=== PATIENT | female | born 1930 | race Caucasian/White ===

== ENCOUNTER 2019-11-14 15:42 | Observation (INO) ==
[2019-11-14] MEDS ORDERED: hydrALAZINE 20 MG/1 ML VIAL IV STA (16:12)
[2019-11-14 16:22] LABS: Basophils # 0.1 10*3/uL (0.0-0.2); Eosinophils # 0.2 10*3/uL (0.0-0.87); Eosinophils % 2.4 % (0.00-10.9); Hemoglobin 13.1 GM/DL (12.0-16.0); Immature Granulocytes % 0.6 %; Immature Granulocytes Absolute 0.05 #; Lymphocytes # 1.2 10*3/uL (1.4-4.0); Lymphocytes % 14.5 % (21.3-54.2); Mean Corpuscular HGB Conc 34.5 GM/DL (32-36); Mean Corpuscular Volume 93.6 FL (87-102); Mean Platelet Volume 9.4 FL (9.6-12.0); Monocytes % 11.4 % (1.7-12.7); Neutrophils % 70.1 % (38.7-73.9); Platelet Count 236 T/CUMM (130-400); Red Blood Count 4.06 MC/CUMM (3.8-5.5); Red Cell Distribution Width 12.8 % (9.3-17.3); White Blood Count 8.3 T/CUMM (4-12)
[2019-11-14 16:58] LABS: Alanine Aminotransferase 50 U/L (13-56); Albumin 3.4 G/DL (3.4-5.0); Alkaline Phosphatase 105 U/L (45-117); Aspartate Amino Transferase 44 U/L (0-37); Blood Urea Nitrogen 18 MG/DL (7-18); Calcium 8.7 MG/DL (8.5-10.1); Estimated Glom Filtration Rate 63 ML/MIN; Glucose 107 MG/DL (74-106); Osmolality,Calculated 250.6 MOS/KG (273-304); Troponin I < 0.015 NG/ML (0.00-0.045)
[2019-11-14] MEDS ORDERED: DOCUSATE SODIUM 100 MG CAPSULE PO PRN (18:27)
[2019-11-14] MEDS ORDERED: ACETAMINOPHEN 325 MG TABLET PO PRN (18:27)
[2019-11-14] MEDS ORDERED: ONDANSETRON 4 MG/2 ML VIAL IV PRN (18:27)
[2019-11-14] MEDS ORDERED: RIVAROXABAN 10 MG TABLET PO ONE (18:29)
[2019-11-14] MEDS ORDERED: ASPIRIN EC 325 MG TABLET PO PRN (18:37)
[2019-11-14] MEDS ORDERED: LORATADINE 10 MG TABLET PO ONE (19:00)
[2019-11-14] MEDS ORDERED: LORATADINE 10 MG TABLET PO PRN (19:01)
[2019-11-14] MEDS ORDERED: hydrALAZINE 20 MG/1 ML VIAL IV PRN (19:02)
[2019-11-14] MEDS: carvediloL 12.5 MG TABLET PO SCH (23:28)
[2019-11-14] MEDS: OXcarbazepine 300 MG TABLET PO SCH (23:30)
[2019-11-14] MEDS: VALSARTAN 160 MG TABLET PO SCH (23:30)
[2019-11-14] MEDS: hydrALAZINE 25 MG TABLET PO SCH (23:33)
[2019-11-14] MEDS: LATANOPROST 0.005% OPH SOLN 2.5 ML BOTTLE BOTH EYES SCH (23:35)
[2019-11-15] MEDS ORDERED: SODIUM CHLORIDE 0.9% 500 ML IV ONE (03:08)
[2019-11-15 05:25] LABS: Basophils # 0.1 10*3/uL (0.0-0.2); Basophils % 0.5 % (0.0-0.8); Eosinophils # 0.1 10*3/uL (0.0-0.87); Eosinophils % 1.1 % (0.00-10.9); Hematocrit 36.4 VOL% (35.7-47.0); Hemoglobin 12.2 GM/DL (12.0-16.0); Immature Granulocytes % 0.8 %; Immature Granulocytes Absolute 0.08 #; Lymphocytes # 0.7 10*3/uL (1.4-4.0); Mean Corpuscular HGB Conc 33.5 GM/DL (32-36); Mean Platelet Volume 9.6 FL (9.6-12.0); Monocytes % 7.1 % (1.7-12.7); Neutrophils % 83.5 % (38.7-73.9); Platelet Count 219 T/CUMM (130-400); Red Blood Count 3.83 MC/CUMM (3.8-5.5); Red Cell Distribution Width 12.9 % (9.3-17.3); White Blood Count 9.6 T/CUMM (4-12)
[2019-11-15 05:48] LABS: Calcium 8.2 MG/DL (8.5-10.1); Osmolality,Calculated 258.2 MOS/KG (273-304); Thyroid Stimulating Hormone 3.08 uIU/ml (0.358-3.74)
[2019-11-15] MEDS: OXcarbazepine 300 MG TABLET PO SCH ×4 (06:38→21:03)
[2019-11-15] MEDS: LEVOTHYROXINE 175 MCG TABLET PO SCH (06:38)
[2019-11-15] MEDS ORDERED: RIVAROXABAN 10 MG TABLET PO SCH (09:00)
[2019-11-15] MEDS: ESTROGENS (CONJ) 0.625 MG TABLET PO SCH (09:29)
[2019-11-15] MEDS: VALSARTAN 160 MG TABLET PO SCH ×2 (09:29→21:04)
[2019-11-15] MEDS: hydrALAZINE 25 MG TABLET PO SCH ×2 (09:31→21:07)
[2019-11-15] MEDS: RIVAROXABAN 20 MG TABLET PO SCH (09:34)
[2019-11-15] MEDS: FUROSEMIDE 20 MG/2 ML VIAL IV SCH ×2 (09:34→16:31)
[2019-11-15] MEDS: carvediloL 12.5 MG TABLET PO SCH ×2 (09:34→21:06)
[2019-11-15] MEDS: FLUTICASONE 50 MCG NASAL SPRAY 16 GM BOTTLE BOTH NARES SCH (09:35)
[2019-11-15] MEDS: LATANOPROST 0.005% OPH SOLN 2.5 ML BOTTLE BOTH EYES SCH (21:10)
[2019-11-16] MEDS: LEVOTHYROXINE 175 MCG TABLET PO SCH (06:45)
[2019-11-16 07:50] VITALS: BP 161/72
[2019-11-16] MEDS: VALSARTAN 160 MG TABLET PO SCH (09:14)
[2019-11-16] MEDS: FUROSEMIDE 20 MG/2 ML VIAL IV SCH (09:14)
[2019-11-16] MEDS: OXcarbazepine 300 MG TABLET PO SCH (09:15)
[2019-11-16] MEDS: ESTROGENS (CONJ) 0.625 MG TABLET PO SCH (09:15)
[2019-11-16] MEDS: hydrALAZINE 25 MG TABLET PO SCH (09:15)
[2019-11-16] MEDS: RIVAROXABAN 20 MG TABLET PO SCH (09:15)
[2019-11-16] MEDS: FLUTICASONE 50 MCG NASAL SPRAY 16 GM BOTTLE BOTH NARES SCH (09:15)
[2019-11-16] MEDS: carvediloL 12.5 MG TABLET PO SCH (09:15)
== END 2019-11-16 11:20 | disposition home or self-care (01) ==
LOC: N.ED 15:42 → N.EDINP 15:42 → N.TELEN 18:25
PROVIDERS: ADMIT Internal Medicine; ATTEND Internal Medicine

== ENCOUNTER 2019-11-26 17:34 | Inpatient (IN) ==
[2019-11-26] MEDS ORDERED: ASPIRIN 325 MG TABLET PO STA (18:12)
[2019-11-26] MEDS ORDERED: hydrALAZINE 20 MG/1 ML VIAL IV STA (18:12)
[2019-11-26] MEDS ORDERED: ONDANSETRON 4 MG/2 ML VIAL IV STA (18:12)
[2019-11-26] MEDS ORDERED: NITROGLYCERIN 2% OINT 1 INCH/GM PACK TOP STA (18:12)
[2019-11-26 18:47] LABS: Basophils % 0.4 % (0.0-0.8); Eosinophils # 0.2 10*3/uL (0.0-0.87); Eosinophils % 2.1 % (0.00-10.9); Hemoglobin 12.3 GM/DL (12.0-16.0); Immature Granulocytes % 0.8 %; Immature Granulocytes Absolute 0.07 #; Lymphocytes # 0.6 10*3/uL (1.4-4.0); Lymphocytes % 6.5 % (21.3-54.2); Mean Corpuscular HGB Conc 35.1 GM/DL (32-36); Mean Corpuscular Volume 92.1 FL (87-102); Mean Platelet Volume 9.1 FL (9.6-12.0); Monocytes % 9.5 % (1.7-12.7); Neutrophils % 80.7 % (38.7-73.9); Platelet Count 215 T/CUMM (130-400); Red Cell Distribution Width 12.8 % (9.3-17.3); White Blood Count 9.1 T/CUMM (4-12)
[2019-11-26 18:59] LABS: PT Patient Result 11.3 SECS (9.6-12.2); Partial Thromboplastin Time 26.6 SECS (20.8-36.0)
[2019-11-26 19:00] LABS: Apearance,Urine CLEAR (Clear); Bilirubin,Urine Negative (Negative); Blood, Urine Negative (Negative); Glucose,Urine (UA) 50 mg/dL (Negative); Ketones,Urine 5 mg/dL (Negative); Mucus,Urine Occasional /LPF (Occasional); Nitrite,Urine Negative (Negative); Protein,Urine 100 MG/DL; RBC,Urine <1 /HPF (0-4); Squamous Epithelial Cell,Urine Occasional /HPF (0-10); Urine Color Yellow (Yellow); Urine Specific Gravity 1.013 (1.001-1.035); Urine Urobilinogen < 2.0 EU/DL (0.2-1.0)
[2019-11-26 19:08] LABS: Alanine Aminotransferase 43 U/L (13-56); Albumin 3.1 G/DL (3.4-5.0); Alkaline Phosphatase 83 U/L (45-117); Aspartate Amino Transferase 31 U/L (0-37); Blood Urea Nitrogen 14 MG/DL (7-18); Calcium 8.2 MG/DL (8.5-10.1); Estimated Glom Filtration Rate 74 ML/MIN; Glucose 115 MG/DL (74-106); Total Protein 6.1 G/DL (6.4-8.3); Troponin I < 0.015 NG/ML (0.00-0.045)
[2019-11-26 19:10] LABS: Barbiturates Screen,Urine Negative (Negative); Benzodiazepines Screen,Urine Negative (Negative); Cannabinoid Screen,Urine Negative (Negative); Opiate Screen,Urine Positive (Negative); Phencyclidine Screen,Urine Negative (Negative)
[2019-11-26] MEDS ORDERED: ORPHENADRINE 60 MG/2 ML VIAL IV STA (19:17)
[2019-11-26] MEDS ORDERED: ASPIRIN EC 325 MG TABLET PO PRN (20:04)
[2019-11-26] MEDS ORDERED: cloNIDine 0.1 MG TABLET PO PRN (20:04)
[2019-11-26] MEDS ORDERED: hydrALAZINE 20 MG/1 ML VIAL IV PRN (20:12)
[2019-11-26] MEDS ORDERED: LORazepam 2 MG/1 ML VIAL IV STA (20:29)
[2019-11-26] MEDS ORDERED: SODIUM CHLORIDE 3% INJ 500 ML IV SCH (21:00)
[2019-11-26] MEDS: carvediloL 12.5 MG TABLET PO SCH (21:06)
[2019-11-26] MEDS: OXcarbazepine 300 MG TABLET PO SCH (21:08)
[2019-11-26] MEDS: ENOXAPARIN 40 MG/0.4 ML SYRINGE SUBCUT SCH (21:08)
[2019-11-26] MEDS: VALSARTAN 160 MG TABLET PO SCH (21:09)
[2019-11-26] MEDS: LATANOPROST 0.005% OPH SOLN 2.5 ML BOTTLE BOTH EYES SCH (22:05)
[2019-11-27 05:25] LABS: Basophils % 0.3 % (0.0-0.8); Eosinophils # 0.1 10*3/uL (0.0-0.87); Eosinophils % 1.4 % (0.00-10.9); Hematocrit 33.7 VOL% (35.7-47.0); Hemoglobin 11.6 GM/DL (12.0-16.0); Immature Granulocytes % 0.5 %; Immature Granulocytes Absolute 0.05 #; Lymphocytes # 0.4 10*3/uL (1.4-4.0); Mean Corpuscular HGB Conc 34.4 GM/DL (32-36); Mean Corpuscular Volume 92.1 FL (87-102); Mean Platelet Volume 9.6 FL (9.6-12.0); Monocytes % 6.9 % (1.7-12.7); Neutrophils % 86.9 % (38.7-73.9); Platelet Count 207 T/CUMM (130-400); Red Blood Count 3.66 MC/CUMM (3.8-5.5); Red Cell Distribution Width 13.1 % (9.3-17.3); White Blood Count 9.3 T/CUMM (4-12)
[2019-11-27 05:52] LABS: Band Neutrophils 1 % (0-10); Eosinophils 1 % (0-10); Hypochromasia Slight; Lymphocytes 2 % (20-55); Ovalocytes Slight; Platelet Estimate Adequate; Segmented Neutrophils 95 % (50-85); Total Cells Counted 100
[2019-11-27] MEDS: ALBUTEROL/IPRATROPIUM 3 ML NEB RESP TX PRN (05:53)
[2019-11-27] MEDS: LEVOTHYROXINE 175 MCG TABLET PO SCH (06:05)
[2019-11-27 06:17] LABS: Osmolality,Calculated 235.6 MOS/KG (273-304); Risk Ratio 2.39; Thyroid Stimulating Hormone 4.46 uIU/ml (0.358-3.74); VLDL CHOLESTEROL 15.4 MG/DL
[2019-11-27] MEDS ORDERED: SODIUM CHLORIDE 0.9% 1,000 ML IV SCH (09:00)
[2019-11-27] MEDS: OXcarbazepine 300 MG TABLET PO SCH ×3 (09:46→21:09)
[2019-11-27] MEDS: carvediloL 12.5 MG TABLET PO SCH ×2 (09:46→21:08)
[2019-11-27] MEDS: ESTROGENS (CONJ) 0.625 MG TABLET PO SCH (09:49)
[2019-11-27] MEDS: PANTOPRAZOLE 40 MG TABLET PO SCH (09:49)
[2019-11-27] MEDS: MULTIVITAMIN (CENTRUM) TABLET PO SCH (09:49)
[2019-11-27] MEDS ORDERED: FUROSEMIDE 40 MG/4 ML VIAL IV ONE (10:20)
[2019-11-27] MEDS ORDERED: FUROSEMIDE 40 MG/4 ML VIAL ONE (10:22)
[2019-11-27] MEDS ORDERED: MAGNESIUM SULF RIDER 2 GM in PREMIX 1 EACH IV PRN (10:24)
[2019-11-27] MEDS ORDERED: MAGNESIUM SULF RIDER 4 GM in PREMIX 1 EACH IV PRN (10:24)
[2019-11-27 11:07] LABS: Apearance,Urine CLEAR (Clear); Bilirubin,Urine Negative (Negative); Blood, Urine Moderate mg/dL (Negative); Glucose,Urine (UA) Negative (Negative); Ketones,Urine Negative (Negative); Mucus,Urine Occasional /LPF (Occasional); Nitrite,Urine Negative (Negative); Protein,Urine Negative; RBC,Urine 23 /HPF (0-4); Urine Color Colorless (Yellow); Urine Specific Gravity 1.004 (1.001-1.035); Urine Urobilinogen < 2.0 EU/DL (0.2-1.0); WBC,Urine <1 /HPF (0-6)
[2019-11-27] MEDS: FUROSEMIDE 40 MG/4 ML VIAL IV SCH (15:02)
[2019-11-27 16:34] LABS: Osmolality,Calculated 248.6 MOS/KG (273-304)
[2019-11-27] MEDS: VALSARTAN 160 MG TABLET PO SCH (21:08)
[2019-11-27] MEDS: ENOXAPARIN 40 MG/0.4 ML SYRINGE SUBCUT SCH (21:09)
[2019-11-27] MEDS: hydrALAZINE 25 MG TABLET PO SCH (21:09)
[2019-11-28] MEDS: LATANOPROST 0.005% OPH SOLN 2.5 ML BOTTLE BOTH EYES SCH ×2 (01:17→20:47)
[2019-11-28 05:53] LABS: Basophils % 0.5 % (0.0-0.8); Eosinophils # 0.1 10*3/uL (0.0-0.87); Eosinophils % 0.7 % (0.00-10.9); Hematocrit 37.1 VOL% (35.7-47.0); Hemoglobin 12.7 GM/DL (12.0-16.0); Immature Granulocytes % 0.7 %; Immature Granulocytes Absolute 0.05 #; Lymphocytes # 0.2 10*3/uL (1.4-4.0); Lymphocytes % 2.9 % (21.3-54.2); Mean Corpuscular HGB Conc 34.2 GM/DL (32-36); Mean Corpuscular Volume 93.9 FL (87-102); Mean Platelet Volume 9.3 FL (9.6-12.0); Neutrophils % 87.2 % (38.7-73.9); Platelet Count 178 T/CUMM (130-400); Red Blood Count 3.95 MC/CUMM (3.8-5.5); Red Cell Distribution Width 13.2 % (9.3-17.3); White Blood Count 7.6 T/CUMM (4-12)
[2019-11-28 06:17] LABS: Calcium 8.3 MG/DL (8.5-10.1); Osmolality,Calculated 249.5 MOS/KG (273-304)
[2019-11-28 06:20] LABS: Lymphocytes 3 % (20-55); Platelet Estimate Adequate; Segmented Neutrophils 91 % (50-85); Total Cells Counted 100
[2019-11-28] MEDS: LEVOTHYROXINE 175 MCG TABLET PO SCH (07:07)
[2019-11-28] MEDS ORDERED: ONDANSETRON 4 MG/2 ML VIAL ONE (09:33)
[2019-11-28] MEDS: hydrALAZINE 25 MG TABLET PO SCH ×2 (09:36→20:46)
[2019-11-28] MEDS: carvediloL 12.5 MG TABLET PO SCH ×2 (09:36→20:46)
[2019-11-28] MEDS: MULTIVITAMIN (CENTRUM) TABLET PO SCH (09:36)
[2019-11-28] MEDS: PANTOPRAZOLE 40 MG TABLET PO SCH (09:36)
[2019-11-28] MEDS: FUROSEMIDE 40 MG/4 ML VIAL IV SCH ×2 (09:37→15:36)
[2019-11-28] MEDS: ESTROGENS (CONJ) 0.625 MG TABLET PO SCH (09:37)
[2019-11-28] MEDS: OXcarbazepine 300 MG TABLET PO SCH ×3 (09:37→20:46)
[2019-11-28] MEDS: ONDANSETRON 4 MG/2 ML VIAL IV PRN (09:38)
[2019-11-28] MEDS: POLYETHYLENE GLYCOL POWDER 17 GM PACK PO SCH (12:49)
[2019-11-28] MEDS ORDERED: ACETAMINOPHEN 325 MG TABLET ONE (15:29)
[2019-11-28] MEDS: ACETAMINOPHEN 325 MG TABLET PO PRN (15:34)
[2019-11-28] MEDS: ALBUTEROL/IPRATROPIUM 3 ML NEB RESP TX PRN (16:21)
[2019-11-28] MEDS: SODIUM CHLORIDE 0.9% 1,000 ML IV SCH (17:40)
[2019-11-28 18:46] LABS: Apearance,Urine CLEAR (Clear); Bilirubin,Urine Negative (Negative); Blood, Urine Negative (Negative); Glucose,Urine (UA) Negative (Negative); Hyaline Casts,Urine 1 /LPF (0-3); Ketones,Urine Negative (Negative); Mucus,Urine Occasional /LPF (Occasional); Nitrite,Urine Negative (Negative); Protein,Urine Negative; RBC,Urine 3 /HPF (0-4); Squamous Epithelial Cell,Urine Occasional /HPF (0-10); Urine Color Yellow (Yellow); Urine Specific Gravity 1.006 (1.001-1.035); Urine Urobilinogen < 2.0 EU/DL (0.2-1.0)
[2019-11-28] MEDS: VALSARTAN 160 MG TABLET PO SCH (20:46)
[2019-11-28] MEDS: ENOXAPARIN 40 MG/0.4 ML SYRINGE SUBCUT SCH (20:47)
[2019-11-29] MEDS: ACETAMINOPHEN 325 MG TABLET PO PRN (01:20)
[2019-11-29 05:39] LABS: Albumin 2.6 G/DL (3.4-5.0); Calcium 7.4 MG/DL (8.5-10.1); Osmolality,Calculated 253.4 MOS/KG (273-304)
[2019-11-29] MEDS: LEVOTHYROXINE 175 MCG TABLET PO SCH (06:54)
[2019-11-29] MEDS: SODIUM CHLORIDE 0.9% 1,000 ML IV SCH ×2 (07:18→14:41)
[2019-11-29] MEDS: ALBUTEROL/IPRATROPIUM 3 ML NEB RESP TX PRN ×2 (07:50→22:52)
[2019-11-29] MEDS: ONDANSETRON 4 MG/2 ML VIAL IV PRN (08:58)
[2019-11-29] MEDS: PANTOPRAZOLE 40 MG TABLET PO SCH (09:01)
[2019-11-29] MEDS: MULTIVITAMIN (CENTRUM) TABLET PO SCH (09:01)
[2019-11-29] MEDS: hydrALAZINE 25 MG TABLET PO SCH ×2 (09:01→22:38)
[2019-11-29] MEDS: carvediloL 12.5 MG TABLET PO SCH ×2 (09:01→22:25)
[2019-11-29] MEDS: POLYETHYLENE GLYCOL POWDER 17 GM PACK PO SCH (09:01)
[2019-11-29] MEDS: ESTROGENS (CONJ) 0.625 MG TABLET PO SCH (09:01)
[2019-11-29] MEDS: OXcarbazepine 300 MG TABLET PO SCH ×2 (09:02→22:26)
[2019-11-29] MEDS ORDERED: POTASSIUM CHLORIDE 20 MEQ TABLET PO ONE (09:31)
[2019-11-29] MEDS: ENOXAPARIN 40 MG/0.4 ML SYRINGE SUBCUT SCH (22:26)
[2019-11-29] MEDS: VALSARTAN 160 MG TABLET PO SCH (22:26)
[2019-11-29] MEDS: LATANOPROST 0.005% OPH SOLN 2.5 ML BOTTLE BOTH EYES SCH (22:39)
[2019-11-30] MEDS: SODIUM CHLORIDE 0.9% 1,000 ML IV SCH (03:51)
[2019-11-30] MEDS: LEVOTHYROXINE 175 MCG TABLET PO SCH (06:02)
[2019-11-30 06:21] LABS: Calcium 7.9 MG/DL (8.5-10.1); Osmolality,Calculated 249.8 MOS/KG (273-304)
[2019-11-30] MEDS: OXcarbazepine 300 MG TABLET PO SCH ×2 (08:20→21:56)
[2019-11-30] MEDS: MULTIVITAMIN (CENTRUM) TABLET PO SCH (08:20)
[2019-11-30] MEDS: carvediloL 12.5 MG TABLET PO SCH ×2 (08:20→21:56)
[2019-11-30] MEDS: hydrALAZINE 25 MG TABLET PO SCH ×2 (08:20→21:56)
[2019-11-30] MEDS: POLYETHYLENE GLYCOL POWDER 17 GM PACK PO SCH (08:20)
[2019-11-30] MEDS: PANTOPRAZOLE 40 MG TABLET PO SCH (08:20)
[2019-11-30] MEDS: ESTROGENS (CONJ) 0.625 MG TABLET PO SCH (08:20)
[2019-11-30] MEDS ORDERED: IPRATROPIUM 500 MCG/2.5 ML NEB RESP TX PRN (08:36)
[2019-11-30] MEDS: guaiFENesin 200 MG/10 ML UDCUP PO PRN (15:20)
[2019-11-30] MEDS: ACETAMINOPHEN 325 MG TABLET PO PRN (15:20)
[2019-11-30] MEDS: ALBUTEROL/IPRATROPIUM 3 ML NEB RESP TX PRN (20:46)
[2019-11-30] MEDS: ENOXAPARIN 40 MG/0.4 ML SYRINGE SUBCUT SCH (21:56)
[2019-11-30] MEDS: LATANOPROST 0.005% OPH SOLN 2.5 ML BOTTLE BOTH EYES SCH (21:58)
[2019-11-30] MEDS: VALSARTAN 160 MG TABLET PO SCH (23:01)
[2019-12-01] MEDS: SODIUM CHLORIDE 0.9% 1,000 ML IV SCH ×2 (04:00→10:02)
[2019-12-01 05:44] LABS: Osmolality,Calculated 254.6 MOS/KG (273-304)
[2019-12-01] MEDS: LEVOTHYROXINE 175 MCG TABLET PO SCH (06:36)
[2019-12-01] MEDS: ESTROGENS (CONJ) 0.625 MG TABLET PO SCH (08:10)
[2019-12-01] MEDS: MULTIVITAMIN (CENTRUM) TABLET PO SCH (08:10)
[2019-12-01] MEDS: PANTOPRAZOLE 40 MG TABLET PO SCH (08:10)
[2019-12-01] MEDS: hydrALAZINE 25 MG TABLET PO SCH ×2 (08:10→20:34)
[2019-12-01] MEDS: carvediloL 12.5 MG TABLET PO SCH ×2 (08:10→20:33)
[2019-12-01] MEDS: POLYETHYLENE GLYCOL POWDER 17 GM PACK PO SCH (08:11)
[2019-12-01] MEDS: OXcarbazepine 300 MG TABLET PO SCH ×2 (08:13→20:32)
[2019-12-01] MEDS: ALBUTEROL/IPRATROPIUM 3 ML NEB RESP TX PRN ×2 (10:18→15:40)
[2019-12-01] MEDS: guaiFENesin 200 MG/10 ML UDCUP PO PRN ×2 (10:27→15:36)
[2019-12-01] MEDS: ACETAMINOPHEN 325 MG TABLET PO PRN ×2 (11:57→15:36)
[2019-12-01] MEDS: ONDANSETRON 4 MG/2 ML VIAL IV PRN (15:36)
[2019-12-01] MEDS: ENOXAPARIN 40 MG/0.4 ML SYRINGE SUBCUT SCH (20:33)
[2019-12-01] MEDS: VALSARTAN 160 MG TABLET PO SCH (20:34)
[2019-12-01] MEDS: LATANOPROST 0.005% OPH SOLN 2.5 ML BOTTLE BOTH EYES SCH (20:43)
[2019-12-02] MEDS: guaiFENesin 200 MG/10 ML UDCUP PO PRN ×2 (00:56→08:07)
[2019-12-02] MEDS: SODIUM CHLORIDE 0.9% 1,000 ML IV SCH (03:51)
[2019-12-02 05:39] LABS: Basophils % 0.3 % (0.0-0.8); Eosinophils # 0.2 10*3/uL (0.0-0.87); Eosinophils % 2.9 % (0.00-10.9); Hematocrit 31.4 VOL% (35.7-47.0); Hemoglobin 10.6 GM/DL (12.0-16.0); Immature Granulocytes % 0.8 %; Immature Granulocytes Absolute 0.05 #; Lymphocytes # 0.4 10*3/uL (1.4-4.0); Lymphocytes % 6.6 % (21.3-54.2); Mean Corpuscular HGB Conc 33.8 GM/DL (32-36); Mean Corpuscular Volume 94.3 FL (87-102); Mean Platelet Volume 10.6 FL (9.6-12.0); Monocytes % 7.8 % (1.7-12.7); Neutrophils % 81.6 % (38.7-73.9); Platelet Count 129 T/CUMM (130-400); Red Blood Count 3.33 MC/CUMM (3.8-5.5); Red Cell Distribution Width 13.7 % (9.3-17.3); White Blood Count 6.7 T/CUMM (4-12)
[2019-12-02 06:04] LABS: Calcium 7.9 MG/DL (8.5-10.1); Free T4 (Free Thyroxine) 1.22 NG/DL (0.76-1.46); Osmolality,Calculated 257.5 MOS/KG (273-304)
[2019-12-02] MEDS: LEVOTHYROXINE 175 MCG TABLET PO SCH (06:06)
[2019-12-02] MEDS: hydrALAZINE 25 MG TABLET PO SCH ×2 (08:05→20:41)
[2019-12-02] MEDS: OXcarbazepine 300 MG TABLET PO SCH ×2 (08:05→20:58)
[2019-12-02] MEDS: carvediloL 12.5 MG TABLET PO SCH ×2 (08:06→21:12)
[2019-12-02] MEDS: MULTIVITAMIN (CENTRUM) TABLET PO SCH (08:07)
[2019-12-02] MEDS: POLYETHYLENE GLYCOL POWDER 17 GM PACK PO SCH (08:07)
[2019-12-02] MEDS: ESTROGENS (CONJ) 0.625 MG TABLET PO SCH (08:08)
[2019-12-02] MEDS: PANTOPRAZOLE 40 MG TABLET PO SCH (08:08)
[2019-12-02] MEDS: ALBUTEROL/IPRATROPIUM 3 ML NEB RESP TX SCH ×3 (12:55→19:38)
[2019-12-02] MEDS ORDERED: RACEPINEPHRINE 0.5 ML NEB RESP TX ONE (12:58)
[2019-12-02] MEDS: ACETAMINOPHEN 325 MG TABLET PO PRN ×2 (16:00→20:57)
[2019-12-02] MEDS: ONDANSETRON 4 MG/2 ML VIAL IV PRN (17:28)
[2019-12-02] MEDS: VALSARTAN 80 MG TABLET PO SCH ×2 (20:43→21:13)
[2019-12-02] MEDS: ENOXAPARIN 40 MG/0.4 ML SYRINGE SUBCUT SCH (20:58)
[2019-12-02] MEDS: LATANOPROST 0.005% OPH SOLN 2.5 ML BOTTLE BOTH EYES SCH (21:11)
[2019-12-03] MEDS: ALBUTEROL/IPRATROPIUM 3 ML NEB RESP TX SCH ×7 (01:12→23:58)
[2019-12-03] MEDS: ACETAMINOPHEN 325 MG TABLET PO PRN ×2 (03:45→11:45)
[2019-12-03] MEDS: SODIUM CHLORIDE 0.9% 1,000 ML IV SCH (04:16)
[2019-12-03 05:11] LABS: Basophils % 0.3 % (0.0-0.8); Eosinophils # 0.2 10*3/uL (0.0-0.87); Eosinophils % 2.5 % (0.00-10.9); Hematocrit 33.5 VOL% (35.7-47.0); Hemoglobin 11.3 GM/DL (12.0-16.0); Immature Granulocytes % 0.9 %; Immature Granulocytes Absolute 0.07 #; Lymphocytes # 0.5 10*3/uL (1.4-4.0); Lymphocytes % 6.4 % (21.3-54.2); Mean Corpuscular HGB Conc 33.7 GM/DL (32-36); Mean Corpuscular Volume 95.2 FL (87-102); Mean Platelet Volume 10.4 FL (9.6-12.0); Monocytes % 9.1 % (1.7-12.7); Neutrophils % 80.8 % (38.7-73.9); Platelet Count 145 T/CUMM (130-400); Red Blood Count 3.52 MC/CUMM (3.8-5.5); Red Cell Distribution Width 13.7 % (9.3-17.3); White Blood Count 7.9 T/CUMM (4-12)
[2019-12-03 05:25] LABS: Calcium 8.2 MG/DL (8.5-10.1); Osmolality,Calculated 256.6 MOS/KG (273-304)
[2019-12-03] MEDS: LEVOTHYROXINE 175 MCG TABLET PO SCH (05:49)
[2019-12-03] MEDS: hydrALAZINE 25 MG TABLET PO SCH ×2 (09:02→21:30)
[2019-12-03] MEDS: carvediloL 12.5 MG TABLET PO SCH ×2 (09:03→21:30)
[2019-12-03] MEDS: POLYETHYLENE GLYCOL POWDER 17 GM PACK PO SCH (09:03)
[2019-12-03] MEDS: OXcarbazepine 300 MG TABLET PO SCH (09:03)
[2019-12-03] MEDS: MULTIVITAMIN (CENTRUM) TABLET PO SCH (09:03)
[2019-12-03] MEDS: ESTROGENS (CONJ) 0.625 MG TABLET PO SCH (09:04)
[2019-12-03] MEDS: PANTOPRAZOLE 40 MG TABLET PO SCH (09:04)
[2019-12-03] MEDS: guaiFENesin 200 MG/10 ML UDCUP PO PRN (11:51)
[2019-12-03] MEDS: LATANOPROST 0.005% OPH SOLN 2.5 ML BOTTLE BOTH EYES SCH (21:29)
[2019-12-03] MEDS: ENOXAPARIN 40 MG/0.4 ML SYRINGE SUBCUT SCH (21:29)
[2019-12-03] MEDS: VALSARTAN 80 MG TABLET PO SCH (21:30)
[2019-12-04] MEDS: SODIUM CHLORIDE 0.9% 1,000 ML IV SCH (03:35)
[2019-12-04] MEDS: ALBUTEROL/IPRATROPIUM 3 ML NEB RESP TX SCH ×3 (04:13→10:56)
[2019-12-04 04:59] LABS: Basophils % 0.3 % (0.0-0.8); Eosinophils # 0.3 10*3/uL (0.0-0.87); Eosinophils % 3.4 % (0.00-10.9); Hematocrit 33.6 VOL% (35.7-47.0); Hemoglobin 11.1 GM/DL (12.0-16.0); Immature Granulocytes % 0.9 %; Immature Granulocytes Absolute 0.07 #; Lymphocytes # 0.4 10*3/uL (1.4-4.0); Lymphocytes % 5.3 % (21.3-54.2); Mean Corpuscular Volume 94.9 FL (87-102); Mean Platelet Volume 10.6 FL (9.6-12.0); Monocytes % 7.3 % (1.7-12.7); Neutrophils % 82.8 % (38.7-73.9); Platelet Count 175 T/CUMM (130-400); Red Blood Count 3.54 MC/CUMM (3.8-5.5); Red Cell Distribution Width 13.6 % (9.3-17.3); White Blood Count 7.6 T/CUMM (4-12)
[2019-12-04] MEDS: LEVOTHYROXINE 175 MCG TABLET PO SCH (05:38)
[2019-12-04 05:41] LABS: Calcium 8.3 MG/DL (8.5-10.1); Osmolality,Calculated 261.1 MOS/KG (273-304)
[2019-12-04] MEDS: MULTIVITAMIN (CENTRUM) TABLET PO SCH ×2 (08:54→09:01)
[2019-12-04] MEDS: POLYETHYLENE GLYCOL POWDER 17 GM PACK PO SCH ×2 (08:54→09:01)
[2019-12-04] MEDS: ESTROGENS (CONJ) 0.625 MG TABLET PO SCH ×2 (08:55→09:01)
[2019-12-04] MEDS: carvediloL 12.5 MG TABLET PO SCH (08:55)
[2019-12-04] MEDS: PANTOPRAZOLE 40 MG TABLET PO SCH (08:55)
[2019-12-04] MEDS: hydrALAZINE 25 MG TABLET PO SCH (08:55)
[2019-12-04] MEDS ORDERED: OXcarbazepine 300 MG TABLET PO SCH (09:00)
[2019-12-04 10:47] LABS: Apearance,Urine CLEAR (Clear); Bilirubin,Urine Negative (Negative); Blood, Urine Negative (Negative); Glucose,Urine (UA) Negative (Negative); Ketones,Urine Negative (Negative); Nitrite,Urine Negative (Negative); Protein,Urine Negative; RBC,Urine <1 /HPF (0-4); Squamous Epithelial Cell,Urine Few /HPF (0-10); Urine Color Yellow (Yellow); Urine Specific Gravity 1.008 (1.001-1.035); WBC,Urine <1 /HPF (0-6)
[2019-12-04] MEDS: ACETAMINOPHEN 325 MG TABLET PO PRN (14:01)
[2019-12-04 15:25] VITALS: BP 113/63
[2019-12-04] MEDS ORDERED: SODIUM CHLORIDE/POTASSIUM CHLORIDE TABLET PO SCH (21:00)
== END 2019-12-04 16:06 | DRG 640 ==
LOC: N.ED 17:34 → N.EDINP 20:06 → SUATTDRO 20:06 → N.CC 20:34 → N.5E 11-27 14:16
PROVIDERS: ADMIT Internal Medicine Geriatric Medicine; ATTEND Family Medicine

== ENCOUNTER 2021-03-12 17:39 | Inpatient (IN) ==
[2021-03-12] MEDS ORDERED: ALBUTEROL 2.5 MG/3 ML NEB RESP TX STA (18:01)
[2021-03-12] MEDS ORDERED: SODIUM CHLORIDE 0.9% 250 ML IV STA (18:03)
[2021-03-12 18:16] LABS: Basophils % 0.6 % (0.0-0.8); Eosinophils # 0.1 10*3/uL (0.0-0.87); Eosinophils % 1.4 % (0.00-10.9); Hematocrit 31.3 VOL% (35.7-47.0); Hemoglobin 9.6 GM/DL (12.0-16.0); Immature Granulocytes % 0.9 %; Immature Granulocytes Absolute 0.06 #; Lymphocytes # 0.6 10*3/uL (1.4-4.0); Lymphocytes % 8.6 % (21.3-54.2); Mean Corpuscular HGB Conc 30.7 GM/DL (32-36); Mean Corpuscular Volume 89.4 FL (87-102); Mean Platelet Volume 9.7 FL (9.6-12.0); Monocytes % 10.8 % (1.7-12.7); Neutrophils % 77.7 % (38.7-73.9); Platelet Count 280 T/CUMM (130-400); Red Cell Distribution Width 15.3 % (9.3-17.3); White Blood Count 6.5 T/CUMM (4-12)
[2021-03-12 18:30] LABS: Bacteria,Urine Occasional /HPF (Few); Bilirubin,Urine Negative (Negative); Blood, Urine Negative (Negative); Glucose,Urine (UA) Negative (Negative); Ketones,Urine Negative (Negative); Mucus,Urine Occasional /LPF (Occasional); Nitrite,Urine Negative (Negative); Protein,Urine 100 MG/DL; RBC,Urine 5 /HPF (0-4); Squamous Epithelial Cell,Urine Occasional /HPF (0-10); Urine Appearance CLOUDY (Clear); Urine Color Yellow (Yellow); Urine Specific Gravity 1.019 (1.001-1.035); Urine Urobilinogen < 2.0 EU/DL (0.2-1.0)
[2021-03-12 18:38] LABS: Alanine Aminotransferase 27 U/L (13-56); Albumin 3.4 G/DL (3.4-5.0); Alkaline Phosphatase 111 U/L (45-117); Aspartate Amino Transferase 29 U/L (0-37); Blood Urea Nitrogen 22 MG/DL (7-18); Calcium 8.6 MG/DL (8.5-10.1); Carbon Dioxide 25 MMOL/L (21-32); Estimated Glom Filtration Rate 56 ML/MIN; Glucose 117 MG/DL (74-106); Osmolality,Calculated 261.9 MOS/KG (273-304); Potassium 4.7 MMOL/L (3.5-5.1); Sodium 129 MMOL/L (136-145); Total Protein 6.7 G/DL (6.4-8.2)
[2021-03-12] MEDS ORDERED: FUROSEMIDE 20 MG/2 ML VIAL IV STA (18:55)
[2021-03-12] MEDS ORDERED: FUROSEMIDE 40 MG/4 ML VIAL ONE (19:08)
[2021-03-12] MEDS ORDERED: ONDANSETRON 4 MG/2 ML VIAL IV PRN (19:39)
[2021-03-12] MEDS ORDERED: GLUCAGON 1 MG VIAL IM PRN (19:39)
[2021-03-12] MEDS ORDERED: ZALEPLON 5 MG CAPSULE PO PRN (19:39)
[2021-03-12] MEDS ORDERED: DEXTROSE 50% 25 GM/50 ML VIAL IV PRN (19:39)
[2021-03-12] MEDS ORDERED: ACETAMINOPHEN 325 MG TABLET PO PRN (19:39)
[2021-03-12] MEDS ORDERED: cloNIDine 0.1 MG TABLET PO PRN (20:06)
[2021-03-13] MEDS: ALBUTEROL/IPRATROPIUM 3 ML NEB RESP TX SCH ×4 (00:47→20:13)
[2021-03-13] MEDS: FUROSEMIDE 40 MG/4 ML VIAL IV SCH ×4 (01:55→20:31)
[2021-03-13 05:07] LABS: Basophils # 0.1 10*3/uL (0.0-0.2); Basophils % 0.7 % (0.0-0.8); Eosinophils # 0.2 10*3/uL (0.0-0.87); Eosinophils % 2.8 % (0.00-10.9); Hemoglobin 9.4 GM/DL (12.0-16.0); Immature Granulocytes % 0.8 %; Immature Granulocytes Absolute 0.06 #; Lymphocytes # 0.9 10*3/uL (1.4-4.0); Lymphocytes % 12.8 % (21.3-54.2); Mean Corpuscular HGB Conc 30.3 GM/DL (32-36); Mean Corpuscular Volume 90.6 FL (87-102); Monocytes % 15.9 % (1.7-12.7); Platelet Count 266 T/CUMM (130-400); Red Blood Count 3.42 MC/CUMM (3.8-5.5); Red Cell Distribution Width 15.1 % (9.3-17.3); White Blood Count 7.2 T/CUMM (4-12)
[2021-03-13 05:38] LABS: Atypical Lymphocytes Few; Band Neutrophils 2 % (0-10); Eosinophils 1 % (0-10); Hypochromasia 1+; Lymphocytes 17 % (20-55); Segmented Neutrophils 68 % (50-85); Total Cells Counted 100
[2021-03-13 05:39] LABS: Microcytosis 1+; Tear Drop Cells Few
[2021-03-13 05:40] LABS: Elliptocytes 1+; Platelet Estimate Normal; Polychromasia Slight
[2021-03-13 05:58] LABS: Calcium 8.7 MG/DL (8.5-10.1); Osmolality,Calculated 262.8 MOS/KG (273-304); Potassium 4.2 MMOL/L (3.5-5.1)
[2021-03-13] MEDS ORDERED: ASPIRIN EC 81 MG TABLET PO PRN (07:45)
[2021-03-13] MEDS: PANTOPRAZOLE 40 MG TABLET PO SCH (08:26)
[2021-03-13] MEDS: hydrALAZINE 25 MG TABLET PO SCH ×3 (08:26→20:33)
[2021-03-13] MEDS: carvediloL 6.25 MG TABLET PO SCH ×2 (08:26→16:01)
[2021-03-13] MEDS ORDERED: POTASSIUM CHLORIDE 20 MEQ TABLET PO ONE (15:33)
[2021-03-13] MEDS: APIXABAN 5 MG TABLET PO SCH (20:32)
[2021-03-13] MEDS: OXcarbazepine 300 MG TABLET PO SCH (20:33)
[2021-03-13] MEDS: TAFLUPROST 0.0015% BOTH EYES SCH (22:09)
[2021-03-14] MEDS: ALBUTEROL/IPRATROPIUM 3 ML NEB RESP TX SCH ×4 (02:19→19:51)
[2021-03-14 04:17] LABS: Risk Ratio 2.73; VLDL CHOLESTEROL 13.6 MG/DL
[2021-03-14 04:46] LABS: Bacteria,Urine Occasional /HPF (Few); Bilirubin,Urine Negative (Negative); Blood, Urine Negative (Negative); Glucose,Urine (UA) Negative (Negative); Hyaline Casts,Urine 1 /LPF (0-3); Ketones,Urine Negative (Negative); Mucus,Urine Occasional /LPF (Occasional); Nitrite,Urine Negative (Negative); Protein,Urine Negative; RBC,Urine 3 /HPF (0-4); Urine Appearance CLEAR (Clear); Urine Color Yellow (Yellow); Urine Specific Gravity 1.008 (1.001-1.035); Urine Urobilinogen < 2.0 EU/DL (0.2-1.0)
[2021-03-14] MEDS: LEVOTHYROXINE 200 MCG TABLET PO SCH (06:49)
[2021-03-14] MEDS: PANTOPRAZOLE 40 MG TABLET PO SCH (08:36)
[2021-03-14] MEDS: hydrALAZINE 25 MG TABLET PO SCH ×3 (08:36→20:36)
[2021-03-14] MEDS: OXcarbazepine 300 MG TABLET PO SCH ×2 (08:36→20:35)
[2021-03-14] MEDS: carvediloL 6.25 MG TABLET PO SCH ×2 (08:36→16:38)
[2021-03-14] MEDS: APIXABAN 5 MG TABLET PO SCH ×2 (08:36→20:36)
[2021-03-14] MEDS: FUROSEMIDE 40 MG/4 ML VIAL IV SCH ×2 (08:37→20:36)
[2021-03-14] MEDS ORDERED: ROSUVASTATIN 20 MG TABLET PO SCH (09:00)
[2021-03-14] MEDS: TAFLUPROST 0.0015% BOTH EYES SCH (22:12)
[2021-03-15] MEDS: ALBUTEROL/IPRATROPIUM 3 ML NEB RESP TX SCH ×2 (01:23→10:30)
[2021-03-15] MEDS: LEVOTHYROXINE 200 MCG TABLET PO SCH (06:53)
[2021-03-15 07:00] LABS: Basophils # 0.1 10*3/uL (0.0-0.2); Basophils % 0.7 % (0.0-0.8); Eosinophils # 0.3 10*3/uL (0.0-0.87); Eosinophils % 4.2 % (0.00-10.9); Hematocrit 28.4 VOL% (35.7-47.0); Hemoglobin 8.6 GM/DL (12.0-16.0); Immature Granulocytes % 0.8 %; Immature Granulocytes Absolute 0.06 #; Lymphocytes # 0.7 10*3/uL (1.4-4.0); Mean Corpuscular HGB Conc 30.3 GM/DL (32-36); Mean Corpuscular Volume 90.4 FL (87-102); Mean Platelet Volume 9.1 FL (9.6-12.0); Monocytes % 14.5 % (1.7-12.7); Neutrophils % 69.8 % (38.7-73.9); Platelet Count 208 T/CUMM (130-400); Red Blood Count 3.14 MC/CUMM (3.8-5.5); Red Cell Distribution Width 15.1 % (9.3-17.3); White Blood Count 7.4 T/CUMM (4-12)
[2021-03-15 07:13] LABS: Calcium 8.5 MG/DL (8.5-10.1); Osmolality,Calculated 277.8 MOS/KG (273-304); Potassium 4.1 MMOL/L (3.5-5.1)
[2021-03-15] MEDS: APIXABAN 5 MG TABLET PO SCH (08:51)
[2021-03-15] MEDS: PANTOPRAZOLE 40 MG TABLET PO SCH (08:51)
[2021-03-15] MEDS: FUROSEMIDE 40 MG/4 ML VIAL IV SCH (08:51)
[2021-03-15] MEDS: carvediloL 6.25 MG TABLET PO SCH (08:51)
[2021-03-15] MEDS: hydrALAZINE 25 MG TABLET PO SCH (08:51)
[2021-03-15] MEDS: OXcarbazepine 300 MG TABLET PO SCH (08:55)
[2021-03-15 12:19] VITALS: BP 139/61
== END 2021-03-15 12:42 | disposition home health service (06) | DRG 291 ==
LOC: EDBD → EDUNIT# → N.ED 17:39 → SUATTDRO 19:39 → N.EDINP 19:39 → N.TELES 22:46
PROVIDERS: ADMIT Family Medicine; ATTEND Internal Medicine Geriatric Medicine

== ENCOUNTER 2021-04-05 10:25 | Inpatient (IN) ==
[2021-04-05 10:48] LABS: Basophils % 0.5 % (0.0-0.8); Eosinophils # 0.3 10*3/uL (0.0-0.87); Eosinophils % 3.9 % (0.00-10.9); Hematocrit 29.3 VOL% (35.7-47.0); Hemoglobin 8.9 GM/DL (12.0-16.0); Immature Granulocytes % 1.3 %; Immature Granulocytes Absolute 0.11 #; Lymphocytes # 0.7 10*3/uL (1.4-4.0); Lymphocytes % 8.7 % (21.3-54.2); Mean Corpuscular HGB Conc 30.4 GM/DL (32-36); Mean Corpuscular Volume 87.2 FL (87-102); Mean Platelet Volume 9.2 FL (9.6-12.0); Monocytes % 11.7 % (1.7-12.7); Neutrophils % 73.9 % (38.7-73.9); Platelet Count 308 T/CUMM (130-400); Red Blood Count 3.36 MC/CUMM (3.8-5.5); Red Cell Distribution Width 16.6 % (9.3-17.3); White Blood Count 8.4 T/CUMM (4-12)
[2021-04-05 11:08] LABS: Albumin 2.7 G/DL (3.4-5.0); Bilirubin,Total 0.8 MG/DL (0.2-1.0); Calcium 8.2 MG/DL (8.5-10.1); Osmolality,Calculated 263.7 MOS/KG (273-304); Potassium 4.8 MMOL/L (3.5-5.1); Total Protein 5.8 G/DL (6.4-8.2)
[2021-04-05 11:48] LABS: Bilirubin,Urine Negative (Negative); Blood, Urine Negative (Negative); Glucose,Urine (UA) Negative (Negative); Hyaline Casts,Urine 3 /LPF (0-3); Ketones,Urine Negative (Negative); Mucus,Urine Occasional /LPF (Occasional); Nitrite,Urine Negative (Negative); Protein,Urine Negative; RBC,Urine 1 /HPF (0-4); Squamous Epithelial Cell,Urine Occasional /HPF (0-10); Urine Appearance CLEAR (Clear); Urine Color Straw (Yellow); Urine Specific Gravity 1.005 (1.001-1.035); Urine Urobilinogen < 2.0 EU/DL (0.2-1.0)
[2021-04-05] MEDS ORDERED: FUROSEMIDE 100 MG/10 ML VIAL IV STA (11:48)
[2021-04-05] MEDS ORDERED: FUROSEMIDE 40 MG/4 ML VIAL ONE (11:52)
[2021-04-05] MEDS ORDERED: LEVOFLOXACIN INJ 500 MG/100 ML PREMIX IV STA (11:55)
[2021-04-05] MEDS ORDERED: DOCUSATE SODIUM 100 MG CAPSULE PO PRN (13:13)
[2021-04-05] MEDS ORDERED: GLUCAGON 1 MG VIAL IM PRN (13:13)
[2021-04-05] MEDS ORDERED: DEXTROSE 50% 25 GM/50 ML VIAL IV PRN (13:13)
[2021-04-05] MEDS ORDERED: ONDANSETRON 4 MG/2 ML VIAL IV PRN (13:13)
[2021-04-05] MEDS ORDERED: TRIAMCINOLONE 0.1% CREAM 15 GM TUBE TOP PRN (13:21)
[2021-04-05] MEDS ORDERED: ALBUTEROL/IPRATROPIUM 3 ML NEB RESP TX PRN (13:23)
[2021-04-05] MEDS ORDERED: hydrALAZINE 20 MG/1 ML VIAL IV PRN (13:23)
[2021-04-05] MEDS: ACETAMINOPHEN 325 MG TABLET PO PRN ×2 (13:47→18:08)
[2021-04-05] MEDS: OXcarbazepine 300 MG TABLET PO SCH ×2 (15:39→22:31)
[2021-04-05] MEDS: hydrALAZINE 25 MG TABLET PO SCH ×2 (15:39→22:16)
[2021-04-05] MEDS ORDERED: traMADol 50 MG TABLET PO PRN (16:54)
[2021-04-05] MEDS: ALBUTEROL/IPRATROPIUM 3 ML NEB RESP TX SCH (20:30)
[2021-04-05] MEDS: LATANOPROST 0.005% OPH SOLN 2.5 ML BOTTLE BOTH EYES SCH (22:00)
[2021-04-05] MEDS: carvediloL 6.25 MG TABLET PO SCH (22:17)
[2021-04-05] MEDS: APIXABAN 5 MG TABLET PO SCH (22:17)
[2021-04-05] MEDS: ZALEPLON 5 MG CAPSULE PO PRN (22:19)
[2021-04-06] MEDS: ALBUTEROL/IPRATROPIUM 3 ML NEB RESP TX SCH ×4 (00:30→19:28)
[2021-04-06] MEDS: guaiFENesin/CODEINE 5 ML LIQUID PO PRN (04:46)
[2021-04-06 05:52] LABS: Basophils # 0.1 10*3/uL (0.0-0.2); Basophils % 0.6 % (0.0-0.8); Eosinophils # 0.3 10*3/uL (0.0-0.87); Eosinophils % 3.2 % (0.00-10.9); Hematocrit 30.1 VOL% (35.7-47.0); Hemoglobin 9.1 GM/DL (12.0-16.0); Immature Granulocytes % 1.6 %; Immature Granulocytes Absolute 0.15 #; Lymphocytes # 0.8 10*3/uL (1.4-4.0); Lymphocytes % 8.3 % (21.3-54.2); Mean Corpuscular HGB Conc 30.2 GM/DL (32-36); Mean Corpuscular Volume 85.8 FL (87-102); Mean Platelet Volume 9.3 FL (9.6-12.0); Monocytes % 10.5 % (1.7-12.7); Neutrophils % 75.8 % (38.7-73.9); Platelet Count 324 T/CUMM (130-400); Red Blood Count 3.51 MC/CUMM (3.8-5.5); Red Cell Distribution Width 16.6 % (9.3-17.3); White Blood Count 9.5 T/CUMM (4-12)
[2021-04-06 06:24] LABS: Albumin 2.7 G/DL (3.4-5.0); Bilirubin,Total 1.2 MG/DL (0.2-1.0); Calcium 8.6 MG/DL (8.5-10.1); Osmolality,Calculated 259.8 MOS/KG (273-304); Potassium 4.1 MMOL/L (3.5-5.1); Risk Ratio 2.77; Thyroid Stimulating Hormone 6.53 uIU/ml (0.358-3.74); Total Protein 5.7 G/DL (6.4-8.2); VLDL CHOLESTEROL 18.4 MG/DL
[2021-04-06] MEDS: LEVOTHYROXINE 200 MCG TABLET PO SCH (09:21)
[2021-04-06] MEDS: APIXABAN 5 MG TABLET PO SCH ×2 (09:21→21:18)
[2021-04-06] MEDS: PANTOPRAZOLE 40 MG TABLET PO SCH (09:21)
[2021-04-06] MEDS: carvediloL 6.25 MG TABLET PO SCH ×2 (09:21→21:18)
[2021-04-06] MEDS: POTASSIUM CHLORIDE 20 MEQ TABLET PO SCH (09:22)
[2021-04-06] MEDS: amLODIPine 2.5 MG TABLET PO SCH (09:22)
[2021-04-06] MEDS: hydrALAZINE 25 MG TABLET PO SCH ×3 (09:22→21:18)
[2021-04-06] MEDS: OXcarbazepine 300 MG TABLET PO SCH ×3 (09:23→21:23)
[2021-04-06] MEDS: FERROUS SULFATE 325 MG TABLET PO SCH (09:23)
[2021-04-06] MEDS: MULTIVITAMIN (CENTRUM) TABLET PO SCH (09:23)
[2021-04-06] MEDS: FUROSEMIDE 40 MG/4 ML VIAL IV SCH (09:26)
[2021-04-06] MEDS: methylPREDNISolone SOD SUC 40 MG/1 ML VIAL IV SCH (11:58)
[2021-04-06] MEDS: ACETAMINOPHEN 325 MG TABLET PO PRN ×3 (12:27→21:18)
[2021-04-06] MEDS ORDERED: ROSUVASTATIN 20 MG TABLET PO SCH (13:21)
[2021-04-06] MEDS: LEVOFLOXACIN INJ 500 MG/100 ML PREMIX IV SCH (14:10)
[2021-04-06] MEDS: ZALEPLON 5 MG CAPSULE PO PRN (21:17)
[2021-04-06] MEDS: LATANOPROST 0.005% OPH SOLN 2.5 ML BOTTLE BOTH EYES SCH (21:19)
[2021-04-07] MEDS: guaiFENesin/CODEINE 5 ML LIQUID PO PRN ×2 (00:23→21:49)
[2021-04-07] MEDS: ALBUTEROL/IPRATROPIUM 3 ML NEB RESP TX SCH ×4 (01:42→19:41)
[2021-04-07] MEDS: ACETAMINOPHEN 325 MG TABLET PO PRN ×4 (02:32→23:11)
[2021-04-07 06:12] LABS: Basophils % 0.4 % (0.0-0.8); Eosinophils # 0.2 10*3/uL (0.0-0.87); Hematocrit 27.5 VOL% (35.7-47.0); Hemoglobin 8.4 GM/DL (12.0-16.0); Immature Granulocytes % 1.4 %; Immature Granulocytes Absolute 0.12 #; Lymphocytes # 0.9 10*3/uL (1.4-4.0); Lymphocytes % 10.3 % (21.3-54.2); Mean Corpuscular HGB Conc 30.5 GM/DL (32-36); Mean Corpuscular Volume 85.9 FL (87-102); Monocytes % 12.2 % (1.7-12.7); Neutrophils % 73.7 % (38.7-73.9); Platelet Count 314 T/CUMM (130-400); Red Cell Distribution Width 16.5 % (9.3-17.3); White Blood Count 8.5 T/CUMM (4-12)
[2021-04-07 06:28] LABS: Calcium 8.4 MG/DL (8.5-10.1); Osmolality,Calculated 257.1 MOS/KG (273-304); Potassium 3.9 MMOL/L (3.5-5.1)
[2021-04-07 06:36] LABS: Eosinophils 2 % (0-10); Lymphocytes 8 % (20-55); Platelet Estimate Normal; Segmented Neutrophils 84 % (50-85); Total Cells Counted 100
[2021-04-07] MEDS: PANTOPRAZOLE 40 MG TABLET PO SCH (09:19)
[2021-04-07] MEDS: amLODIPine 2.5 MG TABLET PO SCH (09:20)
[2021-04-07] MEDS: LEVOTHYROXINE 200 MCG TABLET PO SCH (09:20)
[2021-04-07] MEDS: carvediloL 6.25 MG TABLET PO SCH ×2 (09:20→21:47)
[2021-04-07] MEDS: hydrALAZINE 25 MG TABLET PO SCH ×3 (09:20→21:47)
[2021-04-07] MEDS: APIXABAN 5 MG TABLET PO SCH ×2 (09:20→21:47)
[2021-04-07] MEDS: POTASSIUM CHLORIDE 20 MEQ TABLET PO SCH (09:21)
[2021-04-07] MEDS: OXcarbazepine 300 MG TABLET PO SCH ×3 (09:21→21:47)
[2021-04-07] MEDS: MULTIVITAMIN (CENTRUM) TABLET PO SCH (09:21)
[2021-04-07] MEDS: FUROSEMIDE 40 MG/4 ML VIAL IV SCH (09:23)
[2021-04-07] MEDS: methylPREDNISolone SOD SUC 40 MG/1 ML VIAL IV SCH (09:25)
[2021-04-07] MEDS: FERROUS SULFATE 325 MG TABLET PO SCH (09:28)
[2021-04-07] MEDS ORDERED: amLODIPine 2.5 MG TABLET PO ONE (10:55)
[2021-04-07] MEDS: LEVOFLOXACIN INJ 500 MG/100 ML PREMIX IV SCH (13:12)
[2021-04-07] MEDS: LATANOPROST 0.005% OPH SOLN 2.5 ML BOTTLE BOTH EYES SCH (21:47)
[2021-04-08] MEDS: ALBUTEROL/IPRATROPIUM 3 ML NEB RESP TX SCH ×2 (01:42→07:15)
[2021-04-08 05:47] LABS: Basophils % 0.2 % (0.0-0.8); Eosinophils # 0.3 10*3/uL (0.0-0.87); Eosinophils % 2.8 % (0.00-10.9); Hematocrit 28.1 VOL% (35.7-47.0); Immature Granulocytes % 1.2 %; Immature Granulocytes Absolute 0.11 #; Lymphocytes % 11.4 % (21.3-54.2); Mean Corpuscular Volume 84.4 FL (87-102); Mean Platelet Volume 9.1 FL (9.6-12.0); Monocytes % 11.9 % (1.7-12.7); Neutrophils % 72.5 % (38.7-73.9); Platelet Count 312 T/CUMM (130-400); Red Blood Count 3.33 MC/CUMM (3.8-5.5); Red Cell Distribution Width 16.7 % (9.3-17.3); White Blood Count 8.8 T/CUMM (4-12)
[2021-04-08 06:10] LABS: Calcium 8.8 MG/DL (8.5-10.1); Osmolality,Calculated 258.9 MOS/KG (273-304); Potassium 3.9 MMOL/L (3.5-5.1)
[2021-04-08] MEDS: ACETAMINOPHEN 325 MG TABLET PO PRN (06:42)
[2021-04-08] MEDS ORDERED: amLODIPine 5 MG TABLET PO SCH (09:00)
[2021-04-08] MEDS: OXcarbazepine 300 MG TABLET PO SCH (09:10)
[2021-04-08] MEDS: carvediloL 6.25 MG TABLET PO SCH (09:10)
[2021-04-08] MEDS: POTASSIUM CHLORIDE 20 MEQ TABLET PO SCH (09:10)
[2021-04-08] MEDS: LEVOTHYROXINE 200 MCG TABLET PO SCH (09:11)
[2021-04-08] MEDS: MULTIVITAMIN (CENTRUM) TABLET PO SCH (09:11)
[2021-04-08] MEDS: hydrALAZINE 25 MG TABLET PO SCH (09:12)
[2021-04-08] MEDS: APIXABAN 5 MG TABLET PO SCH (09:12)
[2021-04-08] MEDS: PANTOPRAZOLE 40 MG TABLET PO SCH (09:27)
[2021-04-08] MEDS: FERROUS SULFATE 325 MG TABLET PO SCH (09:27)
[2021-04-08] MEDS: methylPREDNISolone SOD SUC 40 MG/1 ML VIAL IV SCH (09:28)
[2021-04-08] MEDS: FUROSEMIDE 40 MG/4 ML VIAL IV SCH (09:28)
[2021-04-08 11:31] VITALS: BP 131/51
[2021-04-08] MEDS ORDERED: FUROSEMIDE 40 MG TABLET PO SCH (16:00)
== END 2021-04-08 12:53 | disposition home health service (06) | DRG 291 ==
LOC: EDUNIT# → EDBD → N.ED 10:25 → SUATTDRO 13:13 → N.EDINP 13:13 → N.TELES 14:01
PROVIDERS: ADMIT Internal Medicine; ATTEND Internal Medicine